=== PATIENT | female | born 1995 | race Asian ===

== ENCOUNTER 2019-07-31 22:20 | Emergency (ER) | payer SELFPAY ==
[~2019-07-31] VITALS: Ht 172.7 cm; Wt 67.0 kg
[2019-07-31 22:27] VITALS: BP 124/70
== END 2019-08-01 01:11 | disposition left against medical advice (07) ==
LOC: ER 22:20
DX: Z53.21 Procedure and treatment not carried out due to patient leaving prior to being seen by health care provider (principal)